=== PATIENT | male | born 1945 | race Caucasian/White ===

== ENCOUNTER → 2020-06-25 12:55 | Outpatient (CLI) | payer MEDICARE, SELFPAY ==
[2020-05-15 11:29] VITALS: BMI 22.5
--- NOTE | 2020-06-25 12:58 | ECHOD_ITS ---
Reason For Study: Valve Replacement Eval Procedure This was a 2D Doppler, Color Flow transthoracic echocardiogram. The exam was of adequate technical quality. Exam performed in department. Left Ventricle Normal LV size. Mild segmental systolic dysfunction (see wall motion). The estimated ejection fraction is 50 %. Paradoxical septal wall motion compatible to post open heart surgery state and/or an underlying electronic ventricular paced rhythm. Infero-Basal: Akinetic. Mid-Lateral : Hypokinetic. Mid-Posterior: Hypokinetic. Mid-Inferior: Akinetic. Mid-inferoseptal : Hypokinetic. Mid-anteroseptal : Hypokinetic. Inferior [place] : Akinetic. Lateral [place] : Hypokinetic. Septal [place] : Akinetic. Right Ventricle Normal RV size. ICD or pacer leads identified within the right ventricle. Normal systolic function. Atria The left atrium is moderately enlarged. The right atrium is mildly enlarged. ICD or pacer leads identified within the right atrium. No doppler evidence for ASD. Mitral Valve There is mild mitral annular calcification. Mild diffuse mitral valve thickening. Mild (1+) mitral valve insufficiency. Tricuspid Valve Right ventricular systolic pressure estimated to be 38 mmHg. An annuloplasty ring is noted in the tricuspid position. Mild transvalvular insufficiency of the tricuspid valve. Aortic Valve Stable appearing bioprosthetic aortic valve apparatus. Pulmonic Valve The pulmonic valve is not well visualized. Trivial pulmonic valve insufficiency. Great Vessels Normal sized aortic root. Pericardium/Pleural No pericardial effusion. MMode/2D Measurements & Calculations LVIDd: 5.3 cm IVSd: 0.99 cm LVOT diam: 2.0 cm LVIDs: 3.8 cm LVPWd: 1.0 cm LVOT area: 3.2 cm2 RVDd: 4.2 cm FS: 28.5 % Ao root diam: 3.5 cm LAV(MOD-bp): 83.6 ml EDV(MOD-sp4): 69.3 ml LAV(MOD-bp) Indexed: 46.2 ml/m2 ESV(MOD-sp4): 32.4 ml LAV(MOD-sp2): 85.3 ml EF(MOD-sp4): 53.2 % LAV(MOD-sp4): 75.8 ml EDV(MOD-sp2): 86.6 ml SV(MOD-sp4): 36.9 ml SV(MOD-sp2): 38.4 ml ESV(MOD-sp2): 48.2 ml EF(MOD-sp2): 44.4 % LA A4 area: 25.2 cm2 LA dimension(2D): 5.5 cm RA A4 area: 23.2 cm2 Time Measurements MV dec time: 0.21 sec Doppler Measurements & Calculations MV E max mario: 99.3 cm/sec Lat Peak E' Mario: 7.3 cm/sec Med Peak E' Mario: 8.3 cm/sec MV A max mario: 32.9 cm/sec E/E' lat: 13.6 E/E' med: 11.9 MV E/A: 3.0 Ao V2 max: 217.2 cm/sec LV V1 max: 70.9 cm/sec SV(LVOT): 51.8 ml Ao max P.9 mmHg LV V1 max P.0 mmHg Ao V2 mean: 155.0 cm/sec LV V1 mean P.2 mmHg Ao mean P.4 mmHg LV V1 mean: 53.0 cm/sec Ao V2 VTI: 47.5 cm LV V1 VTI: 16.1 cm PATIENCE(I,D): 1.1 cm2 PATIENCE(V,D): 1.0 cm2 PA V2 max: 79.7 cm/sec PI end-d mario: 147.5 cm/sec TR max mario: 293.8 cm/sec TR max P.8 mmHg ECHO/Echo Complete Interpretation Summary Mild segmental systolic dysfunction (see wall motion). The estimated ejection fraction is 50 %. Paradoxical septal wall motion compatible to post open heart surgery state and/ or an underlying electronic ventricular paced rhythm. The left atrium is moderately enlarged. The right atrium is mildly enlarged. There is mild mitral annular calcification. Mild diffuse mitral valve thickening. Mild (1+) mitral valve insufficiency. An annuloplasty ring is noted in the tricuspid position. Mild transvalvular insufficiency of the tricuspid valve. Stable appearing bioprosthetic aortic valve apparatus. Trivial pulmonic valve insufficiency. Right ventricular systolic pressure estimated to be 38 mmHg. Transmitral diastolic flow velocities suggest diastolic dysfunction (pseudonorm al pattern). ICD or pacer leads identified within the right atrium ICD or pacer leads identified within the right ventricle. Ordering Physician: Elder York Referring Physician: Kevin Franks Performed By: Becki Falk RDCS, RVT
== END ==
PROVIDERS: PCP Family Medicine; Referring Provider Internal Medicine Cardiovascular Disease; Visit Provider Internal Medicine Cardiovascular Disease
DX: I25.10 Atherosclerotic heart disease of native coronary artery without angina pectoris (principal); Z98.890 Other specified postprocedural states; Z95.3 Presence of xenogenic heart valve
CPT/HCPCS: 93306